=== PATIENT | female | born 2000 | race Caucasian/White ===

== ENCOUNTER → 2021-04-22 | Outpatient (CLI) | payer BC, OTHER ==
[~2021-04-22] VITALS: Ht 165.1 cm; Wt 56.2 kg
[2021-04-22 15:46] VITALS: BP 112/66
[2021-04-22 16:00] LABS: MICROSCOPIC NOT IND
== END | disposition home or self-care (01) ==
LOC: LDOP 15:22
PROVIDERS: ATTEND Obstetrics & Gynecology
DX: O42.912 Preterm premature rupture of membranes, unspecified as to length of time between rupture and onset of labor, second trimester (principal); Z3A.25 25 weeks gestation of pregnancy
CPT/HCPCS: 81003; 84112